=== PATIENT | female | born 1980 | race Caucasian/White ===

== ENCOUNTER → 2024-05-07 19:21 | Outpatient (REF) | payer OTHER, SELFPAY | LOC: WDC 19:21 | PROVIDERS: ATTENDING PHYSICIAN Obstetrics & Gynecology; FAMILY PHYSICIAN Family Medicine | DX: Z12.31 Encounter for screening mammogram for malignant neoplasm of breast (principal); Z12.39 Encounter for other screening for malignant neoplasm of breast | CPT/HCPCS: 77063; 77067 ==